=== PATIENT | female | born 1940 | race Caucasian/White ===

== ENCOUNTER 2023-11-06 11:48 | Inpatient (IN) | payer MEDICARE, OTHER ==
[~2023-11-06] VITALS: Ht 157.5 cm; Wt 85.3 kg
[2023-11-06] VITALS (24 sets, daily range): BP systolic 66–156; BP diastolic 32–108; TEMP 97.9–98; O2SAT 92–98
[2023-11-06] MEDS ORDERED: FLUMAZENIL 0.5 MG VIAL IV PRN (14:00)
[2023-11-06] MEDS ORDERED: NALOXONE PREFILLED SYRINGE 2 MG/2 ML SYRINGE IV PRN (14:00)
[2023-11-06] MEDS ORDERED: IOHEXOL 0 ML IV ONE (14:08)
[2023-11-06] MEDS ORDERED: INDOMETHACIN 100 MG SUPP.RECT ONE (14:09)
[2023-11-06] MEDS ORDERED: ANESTHESIA TRAY IN PYXIS 1 EA TRAY MC ONE (14:09)
[2023-11-06] MEDS ORDERED: IOHEXOL 50 ML IV ONE (14:20)
[2023-11-06] MEDS: MIDAZOLAM HCL 2 MG/2ML VIAL IV PRN (15:21)
[2023-11-06] MEDS: FENTANYL PF 250MCG/5ML AMPUL IV PRN (15:21)
[2023-11-06] MEDS ORDERED: NOREPINEPHRINE 32 MG in IV NS 0.9% 218 ML IV PRN (15:30)
[2023-11-06] MEDS ORDERED: LORA2TAB95 PO (16:44)
[2023-11-06] MEDS ORDERED: SENN-261 PO (16:44)
[2023-11-06] MEDS ORDERED: ACET1TAB25 PO (16:44)
[2023-11-06] MEDS ORDERED: APIX2.5T PO (16:44)
[2023-11-06] MEDS ORDERED: CLON0.1T PO (16:44)
[2023-11-06] MEDS ORDERED: ASPI-1420 PO (16:44)
[2023-11-06] MEDS ORDERED: METO25TA4 PO (16:44)
[2023-11-06] MEDS ORDERED: METF-867 PO (16:44)
[2023-11-06] MEDS ORDERED: ENAL10TA39 PO (16:44)
[2023-11-06] MEDS ORDERED: ESOM40CA PO (16:44)
[2023-11-06] MEDS ORDERED: ATOR10TA PO (16:44)
[2023-11-06] MEDS ORDERED: Z GUARD REMEDY 4 OZ OINT TP PRN (17:00)
[2023-11-06] MEDS ORDERED: ACETAMINOPHEN 650 MG/SUPP.RECT RC PRN (17:00)
[2023-11-06] MEDS ORDERED: NOREPINEPHRINE 4 MG/4 ML AMPUL IV ONE (17:01)
[2023-11-06] MEDS ORDERED: VASOPRESSIN INJ 20 UNIT/ML VIAL ONE (17:02)
[2023-11-06] MEDS ORDERED: METOPROLOL TARTRATE INJ 5 MG/5 ML AMPUL ONE (17:02)
[2023-11-06] MEDS ORDERED: FENTANYL PF 100MCG/2ML AMPUL ONE (17:02)
[2023-11-06] MEDS ORDERED: SEVOFLURANE 250 ML BOTTLE IH ONE (17:19)
[2023-11-06] MEDS: IV NS 0.9% 1,000 ML IV PRN (19:42)
[2023-11-06] MEDS: PIPERACILLIN /TAZOBACTAM 2.25 G in IV D5W 50 ML IV SCH (19:44)
[2023-11-06] MEDS: PHENYLEPHRINE 100 MG in IV NS 0.9% 240 ML IV PRN (20:55)
[2023-11-07] VITALS (95 sets, daily range): BP systolic 54–161; BP diastolic 25–142; TEMP 97.9–98.7; O2SAT 95–100
[2023-11-07] MEDS: LORAZEPAM INJ 2 MG/ML VIAL IV PRN (00:10)
[2023-11-07] MEDS ORDERED: IPRATROPIUM NEB FS 0.5 MG/2.5 ML AMPUL.NEB NEB PRN (01:30)
[2023-11-07 03:16] LABS: BASOPHILS % (AUTO) 0.1 % (0.0-2.0); EOSINOPHILS # (AUTO) 0.1 K/uL (0.0-0.7); EOSINOPHILS % (AUTO) 0.4 % (0.0-6.0); HEMATOCRIT 35 % (33-45); HEMOGLOBIN 11.5 g/dL (11.5-14.8); LYMPHOCYTES # (AUTO) 1.3 K/uL (0.8-4.8); LYMPHOCYTES % (AUTO) 7.8 % (20.0-44.0); MEAN CORPUSCULAR HEMOGLOBIN 28 PG (26.0-33.0); MEAN CORPUSCULAR HGB CONC 33 g/dl (31.0-36.0); MEAN CORPUSCULAR VOLUME 85 fL (82-100); MONOCYTES # (AUTO) 0.5 K/uL (0.1-1.30); MONOCYTES % (AUTO) 2.8 % (2.0-12.0); NEUTROPHILS # (AUTO) 14.7 K/uL (1.8-8.9); NEUTROPHILS % (AUTO) 88.9 % (43.0-81.0); PLATELET COUNT (AUTO) 91 K/uL (150-450); RED BLOOD CELL COUNT(AUTO) 4.09 MIL/uL (4.0-5.2); RED CELL DISTRIBUTION WIDTH 14.7 % (11.5-15.0); WHITE BLOOD COUNT (AUTO) 16.6 K/uL (4.3-11.0)
[2023-11-07 03:41] LABS: ALANINE AMINOTRANSFERASE 364 U/L (12-78); ALBUMIN 2.1 g/dL (3.4-5.0); ALKALINE PHOSPHATASE 150 U/L (46-116); AMYLASE 337 U/L (25-115); ASPARTATE AMINOTRANSFERASE 292 U/L (15-37); BILIRUBIN,TOTAL 3.2 mg/dL (0.2-1.0); CALCIUM, SERUM 7.4 mg/dL (8.5-10.1); CARBON DIOXIDE 18 mmol/L (21-32); CHLORIDE 113 mmol/L (98-107); CREATININE 3.4 mg/dL (0.6-1.3); GLUCOSE 53 mg/dL (74-106); LIPASE 104 U/L (16-77); MAGNESIUM 1.9 mg/dL (1.8-2.4); PHOSPHORUS 3.9 mg/dL (2.5-4.9); POTASSIUM 4.4 mmol/L (3.5-5.1); SODIUM SERUM 145 mmol/L (136-145); TOTAL PROTEIN, SERUM 5.3 g/dL (6.4-8.2); UREA NITROGEN, BLOOD 48 mg/dL (7-18)
[2023-11-07 06:38] LABS: ANISOCYTOSIS 1+; BASOPHILS % (MANUAL) 0 % (0.0-2.0); EOSINOPHILS % (MANUAL) 0 % (0-4); LYMPHOCYTES % (MANUAL) 11 % (16-48); MONOCYTES % (MANUAL) 4 % (0-11.0); NEUTROPHILS % (MANUAL) 85 (42-76); PLATELET ESTIMATE DECREASED
[2023-11-07] MEDS: MORPHINE SULFATE INJ 2 MG/ML DISP.SYRIN IV PRN (07:42)
[2023-11-07 08:46] LABS: ABG BASE EXCESS -10.7 mmol/L (-2.0-3.0); ABG OXYGEN SATURATION 95.6 % (94.0-98.0); ABG PCO2 35.8 mmHg (32.0-45.0); ABG PH 7.256 (7.350-7.450); ABG PO2 89.8 mmHg (83.0-108.0); ABG TOTAL HEMOGLOBIN 11.5 G/dL (12.0-16.0); COHb 0.3 % (0.5-1.5); MetHb 0.3 % (0.0-1.5); SITE, ABG RIGHT RADIAL
[2023-11-07] MEDS: PANTOPRAZOLE 40 MG VIAL IV SCH (09:24)
[2023-11-07] MEDS ORDERED: Sodium Bicarbonate 150 MEQ in IV D5W 1,000 ML IV PRN (10:00)
[2023-11-07] MEDS ORDERED: Sodium Bicarbonate 150 MEQ in IV D5W 1,000 ML IV SCH (10:00)
[2023-11-07 10:21] LABS: ABG BASE EXCESS -9.1 mmol/L (-2.0-3.0); ABG OXYGEN SATURATION 98.3 % (94.0-98.0); ABG PCO2 33.1 mmHg (32.0-45.0); ABG PH 7.308 (7.350-7.450); ABG PO2 136.3 mmHg (83.0-108.0); ABG TOTAL HEMOGLOBIN 11.8 G/dL (12.0-16.0); COHb 0.3 % (0.5-1.5); MetHb 0.3 % (0.0-1.5); O2Hb 97.7 % (94.0-97.0); SITE, ABG RIGHT RADIAL
[2023-11-07] MEDS: Sodium Bicarbonate 100 MEQ in IV D5 / 0.2% NACL 1,000 ML IV SCH (10:31)
[2023-11-07 14:06] LABS: HIV-1 p24 ANTIGEN NON REACTIVE (NONREACTIVE); HIV-1/2 ANTIBODY NON REACTIVE (NONREACTIVE)
[2023-11-07] MEDS ORDERED: PROPOFOL 200 MG/20 ML VIAL IV ONE (15:30)
[2023-11-07] MEDS ORDERED: MIDAZOLAM HCL 5 MG/5ML VIAL IV ONE (15:30)
[2023-11-07] MEDS: KETAMINE HCL (500MG/10ML) 50 MG/ML VIAL IJ ONE (15:30)
[2023-11-07] MEDS ORDERED: IV NS 0.9% 250 ML IV ONE (15:33)
[2023-11-07] MEDS: IV NS 0.9% 1,000 ML IV PRN (17:32)
[2023-11-07] MEDS: VANCOMYCIN 750 MG in IV D5W 250 ML IV SCH (19:59)
[2023-11-07 20:24] LABS: APPEARANCE,URINE TURBID (CLEAR); BILIRUBIN,URINE 1+ (NEGATIVE); BLOOD, URINE 3+ Ery/uL (NEGATIVE); COLOR,URINE DARK YELLOW (YELLOW); KETONES,URINE NEGATIVE (NEGATIVE); LEUKOCYTE ESTERASE ,URINE 1+ (NEGATIVE); NITRITE, URINE NEGATIVE (NEGATIVE); PH,URINE 5.5 (5.0-8.0); PROTEIN,URINE 2+ mg/dl (NEGATIVE); UGLUCOSE NEGATIVE (NEGATIVE); UROBILINOGEN,URINE 0.2 EU/dL (0.2)
[2023-11-07 20:44] LABS: CREATININE, URINE 133.8 MG/DL (30.0-125.0); URINE TOTAL PROTEIN 343.1 mg/dL (0-11.9)
[2023-11-07 21:02] LABS: ADD URINE CULTURE YES; BACTERIA,URINE 2+ /HPF (None Seen); RBC,URINE 21-50 /HPF (0-2)
[2023-11-07 21:03] LABS: CALCIUM OXALATE CRYSTALS,UR Rare /HPF (None Seen)
[2023-11-07 22:28] LABS: EOSINOPHIL,URINE None Seen
[2023-11-08] VITALS (105 sets, daily range): BP systolic 89–142; BP diastolic 59–127; TEMP 97.6–98.2; O2SAT 95–100
[2023-11-08] MEDS: MORPHINE SULFATE INJ 2 MG/ML DISP.SYRIN IV PRN (03:56)
[2023-11-08 04:43] LABS: BASOPHILS % (AUTO) 0.1 % (0.0-2.0); EOSINOPHILS # (AUTO) 0.3 K/uL (0.0-0.7); EOSINOPHILS % (AUTO) 1.8 % (0.0-6.0); HEMATOCRIT 31 % (33-45); HEMOGLOBIN 9.9 g/dL (11.5-14.8); LYMPHOCYTES % (AUTO) 6.5 % (20.0-44.0); MEAN CORPUSCULAR HEMOGLOBIN 28 PG (26.0-33.0); MEAN CORPUSCULAR HGB CONC 32 g/dl (31.0-36.0); MEAN CORPUSCULAR VOLUME 86 fL (82-100); MONOCYTES # (AUTO) 0.4 K/uL (0.1-1.30); MONOCYTES % (AUTO) 2.7 % (2.0-12.0); NEUTROPHILS # (AUTO) 13.4 K/uL (1.8-8.9); NEUTROPHILS % (AUTO) 88.9 % (43.0-81.0); PLATELET COUNT (AUTO) 69 K/uL (150-450); RED BLOOD CELL COUNT(AUTO) 3.57 MIL/uL (4.0-5.2); RED CELL DISTRIBUTION WIDTH 15.4 % (11.5-15.0); WHITE BLOOD COUNT (AUTO) 15.1 K/uL (4.3-11.0)
[2023-11-08 05:05] LABS: CREATINE KINASE, TOTAL 524 U/L (26-192)
[2023-11-08 05:56] LABS: ALANINE AMINOTRANSFERASE 232 U/L (12-78); ALBUMIN 1.9 g/dL (3.4-5.0); ALKALINE PHOSPHATASE 221 U/L (46-116); ASPARTATE AMINOTRANSFERASE 140 U/L (15-37); BILIRUBIN,TOTAL 3.5 mg/dL (0.2-1.0); CALCIUM, SERUM 7.1 mg/dL (8.5-10.1); CARBON DIOXIDE 20 mmol/L (21-32); CHLORIDE 110 mmol/L (98-107); CREATININE 4.3 mg/dL (0.6-1.3); GLUCOSE 140 mg/dL (74-106); MAGNESIUM 1.8 mg/dL (1.8-2.4); PHOSPHORUS 2.9 mg/dL (2.5-4.9); POTASSIUM 4.4 mmol/L (3.5-5.1); SODIUM SERUM 142 mmol/L (136-145); TOTAL PROTEIN, SERUM 5.1 g/dL (6.4-8.2); UREA NITROGEN, BLOOD 57 mg/dL (7-18)
[2023-11-08] MEDS ORDERED: Sodium Bicarbonate 150 MEQ in IV D5W 1,000 ML IV PRN (08:00)
[2023-11-08] MEDS: FUROSEMIDE 100 MG/10 ML VIAL IV ONE (08:14)
[2023-11-08] MEDS: Sodium Bicarbonate 150 MEQ in IV D5W 1,000 ML IV SCH (08:14)
[2023-11-08 09:48] LABS: ABG BASE EXCESS -9.3 mmol/L (-2.0-3.0); ABG PCO2 34.7 mmHg (32.0-45.0); ABG PH 7.291 (7.350-7.450); ABG PO2 135.2 mmHg (83.0-108.0); ABG TOTAL HEMOGLOBIN 11.2 G/dL (12.0-16.0); COHb 0.3 % (0.5-1.5); MetHb 0.1 % (0.0-1.5); O2Hb 97.6 % (94.0-97.0); SITE, ABG RIGHT RADIAL
[2023-11-08 11:50] LABS: ANISOCYTOSIS 1+; BASOPHILS % (MANUAL) 0 % (0.0-2.0); EOSINOPHILS % (MANUAL) 1 % (0-4); LYMPHOCYTES % (MANUAL) 8 % (16-48); MONOCYTES % (MANUAL) 4 % (0-11.0); NEUTROPHILS % (MANUAL) 87 (42-76); PLATELET ESTIMATE DECREASED
[2023-11-08] MEDS: AMIODARONE 150 MG in IV D5W 100 ML IV ONE (16:07)
[2023-11-08] MEDS: AMIODARONE 450 MG in IV D5W 241 ML IV PRN (16:20)
[2023-11-09] VITALS (62 sets, daily range): BP systolic 93–201; BP diastolic 56–184; TEMP 98.1–99; O2SAT 93–100
[2023-11-09 04:51] LABS: BASOPHILS % (AUTO) 0.3 % (0.0-2.0); EOSINOPHILS # (AUTO) 0.1 K/uL (0.0-0.7); EOSINOPHILS % (AUTO) 0.7 % (0.0-6.0); HEMATOCRIT 29 % (33-45); HEMOGLOBIN 9.5 g/dL (11.5-14.8); LYMPHOCYTES # (AUTO) 0.8 K/uL (0.8-4.8); LYMPHOCYTES % (AUTO) 6.9 % (20.0-44.0); MEAN CORPUSCULAR HEMOGLOBIN 28 PG (26.0-33.0); MEAN CORPUSCULAR HGB CONC 33 g/dl (31.0-36.0); MEAN CORPUSCULAR VOLUME 83 fL (82-100); MONOCYTES # (AUTO) 0.4 K/uL (0.1-1.30); MONOCYTES % (AUTO) 3.6 % (2.0-12.0); NEUTROPHILS # (AUTO) 10.7 K/uL (1.8-8.9); NEUTROPHILS % (AUTO) 88.5 % (43.0-81.0); PLATELET COUNT (AUTO) 61 K/uL (150-450); RED BLOOD CELL COUNT(AUTO) 3.44 MIL/uL (4.0-5.2); RED CELL DISTRIBUTION WIDTH 14.9 % (11.5-15.0); WHITE BLOOD COUNT (AUTO) 12.1 K/uL (4.3-11.0)
[2023-11-09 05:14] LABS: ALANINE AMINOTRANSFERASE 160 U/L (12-78); ALBUMIN 1.7 g/dL (3.4-5.0); ALKALINE PHOSPHATASE 231 U/L (46-116); ASPARTATE AMINOTRANSFERASE 73 U/L (15-37); BILIRUBIN,TOTAL 3.4 mg/dL (0.2-1.0); CALCIUM, SERUM 7.5 mg/dL (8.5-10.1); CARBON DIOXIDE 32 mmol/L (21-32); CHLORIDE 103 mmol/L (98-107); GLUCOSE 148 mg/dL (74-106); MAGNESIUM 1.8 mg/dL (1.8-2.4); PHOSPHORUS 1.9 mg/dL (2.5-4.9); POTASSIUM 3.3 mmol/L (3.5-5.1); SODIUM SERUM 141 mmol/L (136-145); TOTAL PROTEIN, SERUM 4.9 g/dL (6.4-8.2); UREA NITROGEN, BLOOD 31 mg/dL (7-18)
[2023-11-09 05:53] LABS: BASOPHILS % (MANUAL) 0 % (0.0-2.0); EOSINOPHILS % (MANUAL) 1 % (0-4); LYMPHOCYTES % (MANUAL) 9 % (16-48); MONOCYTES % (MANUAL) 5 % (0-11.0); NEUTROPHILS % (MANUAL) 85 (42-76); PLATELET ESTIMATE DECREASED
[2023-11-09 06:07] LABS: HEPATITIS B CORE AB, TOTAL Positive (Negative)
[2023-11-09 06:07] LABS: PTH, INTACT 222 pg/mL (15-65)
[2023-11-09] MEDS: IV NS 0.9% 1,000 ML IV PRN (08:29)
[2023-11-09 10:09] LABS: *SPE A/G RATIO 0.8 (0.7-1.7); *SPE ALBUMIN 1.8 g/dL (2.9-4.4); *SPE ALPHA-1-GLOBULIN 0.3 g/dL (0.0-0.4); *SPE ALPHA-2-GLOBULIN 0.6 g/dL (0.4-1.0); *SPE BETA GLOBULIN 0.7 g/dL (0.7-1.3); *SPE GLOBULIN, TOTAL 2.2 g/dL (2.2-3.9); *SPE M-SPIKE Not Observed g/dL (Not Observed); *SPEGAMMA GLOBULIN 0.6 g/dL (0.4-1.8)
[2023-11-09 10:09] LABS: ABG OXYGEN SATURATION 96.2 % (94.0-98.0); ABG PCO2 43.1 mmHg (32.0-45.0); ABG PH 7.466 (7.350-7.450); ABG PO2 85.9 mmHg (83.0-108.0); ABG TOTAL HEMOGLOBIN 10.9 G/dL (12.0-16.0); COHb 0.1 % (0.5-1.5); MetHb 0.3 % (0.0-1.5); O2Hb 95.8 % (94.0-97.0); SITE, ABG RIGHT RADIAL
[2023-11-09] MEDS ORDERED: ALBUMIN 25% 25 GM in PREMIX 1 EA IV PRN (15:00)
[2023-11-09] MEDS ORDERED: Sodium Phosphate 15 MMOL in IV NS 0.9% 245 ML IV SCH (16:30)
[2023-11-09] MEDS: NEUTRA PHOS 1 POWD.PACKET PO ONE (17:19)
[2023-11-09] MEDS: ONDANSETRON HCL/PF 4 MG/2 ML VIAL IVP PRN (17:19)
[2023-11-09] MEDS: APIXABAN 2.5 MG TABLET PO SCH (17:31)
[2023-11-09 17:48] LABS: ABG BASE EXCESS 3.2 mmol/L (-2.0-3.0); ABG OXYGEN SATURATION 97.3 % (94.0-98.0); ABG PH 7.478 (7.350-7.450); ABG PO2 100.6 mmHg (83.0-108.0); ABG TOTAL HEMOGLOBIN 10.7 G/dL (12.0-16.0); COHb 0.3 % (0.5-1.5); MetHb 0.3 % (0.0-1.5); O2Hb 96.7 % (94.0-97.0); PEEP,BG 5 cm H2O; SITE, ABG RIGHT RADIAL
[2023-11-09] MEDS: METOPROLOL SUCCINATE 25 MG TAB.SR.24H PO ONE (19:32)
[2023-11-09] MEDS: LISINOPRIL (20MG) 20 MG TABLET PO ONE (19:32)
[2023-11-09] MEDS: CLONIDINE HCL 0.1 MG TABLET PO ONE (19:33)
[2023-11-10] VITALS (21 sets, daily range): BP systolic 90–139; BP diastolic 53–70; TEMP 98–98.6; O2SAT 96–100
[2023-11-10 04:54] LABS: BASOPHILS % (AUTO) 0.1 % (0.0-2.0); EOSINOPHILS # (AUTO) 0.1 K/uL (0.0-0.7); HEMATOCRIT 28 % (33-45); HEMOGLOBIN 9.6 g/dL (11.5-14.8); LYMPHOCYTES # (AUTO) 0.8 K/uL (0.8-4.8); LYMPHOCYTES % (AUTO) 7.6 % (20.0-44.0); MEAN CORPUSCULAR HEMOGLOBIN 28 PG (26.0-33.0); MEAN CORPUSCULAR HGB CONC 34 g/dl (31.0-36.0); MEAN CORPUSCULAR VOLUME 84 fL (82-100); MONOCYTES # (AUTO) 0.8 K/uL (0.1-1.30); NEUTROPHILS # (AUTO) 8.9 K/uL (1.8-8.9); NEUTROPHILS % (AUTO) 83.3 % (43.0-81.0); PLATELET COUNT (AUTO) 56 K/uL (150-450); RED CELL DISTRIBUTION WIDTH 14.9 % (11.5-15.0); WHITE BLOOD COUNT (AUTO) 10.6 K/uL (4.3-11.0)
[2023-11-10 05:17] LABS: ANISOCYTOSIS 1+; BASOPHILS % (MANUAL) 0 % (0.0-2.0); EOSINOPHILS % (MANUAL) 1 % (0-4); LYMPHOCYTES % (MANUAL) 9 % (16-48); MONOCYTES % (MANUAL) 5 % (0-11.0); NEUTROPHILS % (MANUAL) 85 (42-76); PLATELET ESTIMATE DECREASED
[2023-11-10 05:19] LABS: ALANINE AMINOTRANSFERASE 103 U/L (12-78); ALBUMIN 1.5 g/dL (3.4-5.0); ALKALINE PHOSPHATASE 209 U/L (46-116); ASPARTATE AMINOTRANSFERASE 34 U/L (15-37); BILIRUBIN,TOTAL 1.9 mg/dL (0.2-1.0); CALCIUM, SERUM 8.3 mg/dL (8.5-10.1); CARBON DIOXIDE 33 mmol/L (21-32); CHLORIDE 103 mmol/L (98-107); CREATININE 2.8 mg/dL (0.6-1.3); GLUCOSE 131 mg/dL (74-106); MAGNESIUM 2.3 mg/dL (1.8-2.4); PHOSPHORUS 3.2 mg/dL (2.5-4.9); POTASSIUM 3.7 mmol/L (3.5-5.1); SODIUM SERUM 142 mmol/L (136-145); TOTAL PROTEIN, SERUM 4.9 g/dL (6.4-8.2); UREA NITROGEN, BLOOD 26 mg/dL (7-18)
[2023-11-10] MEDS: LISINOPRIL (20MG) 20 MG TABLET PO SCH (09:01)
[2023-11-10] MEDS: METOPROLOL SUCCINATE 25 MG TAB.SR.24H PO SCH (09:01)
[2023-11-10] MEDS: PANTOPRAZOLE 40 MG TABLET.DR PO SCH (09:02)
[2023-11-10] MEDS: CLONIDINE HCL 0.1 MG TABLET PO SCH (09:02)
[2023-11-10] MEDS: PROSOURCE / PROSTAT (PYXIS) 30 ML UDC GT SCH (17:27)
[2023-11-10] MEDS ORDERED: VANCOMYCIN 750 MG in IV D5W 250 ML IV SCH (19:00)
[2023-11-10] MEDS ORDERED: PIPERCILLIN/TAZOBACTAM 2.25GM/D5W 50MLPB IV ONE (19:27)
[2023-11-11] VITALS: BP 139/68; TEMP 98.6; O2SAT 98
[2023-11-11] MEDS ORDERED: PIPERCILLIN/TAZOBACTAM 2.25GM/D5W 50MLPB IV ONE (02:55)
[2023-11-11 04:00] VITALS: BP 147/71; TEMP 98.2; O2SAT 97
[2023-11-11 07:00] VITALS: BP 138/74; TEMP 97.5; O2SAT 99
[2023-11-11 07:06] LABS: ALANINE AMINOTRANSFERASE 72 U/L (12-78); ALKALINE PHOSPHATASE 218 U/L (46-116); BILIRUBIN,TOTAL 1.5 mg/dL (0.2-1.0); CALCIUM, SERUM 8.4 mg/dL (8.5-10.1); CARBON DIOXIDE 24 mmol/L (21-32); CHLORIDE 102 mmol/L (98-107); CREATININE 3.6 mg/dL (0.6-1.3); GLUCOSE 126 mg/dL (74-106); MAGNESIUM 2.3 mg/dL (1.8-2.4); POTASSIUM 5.2 mmol/L (3.5-5.1); SODIUM SERUM 137 mmol/L (136-145); TOTAL PROTEIN, SERUM 5.5 g/dL (6.4-8.2); UREA NITROGEN, BLOOD 44 mg/dL (7-18)
[2023-11-11 07:17] LABS: ALBUMIN 1.4 g/dL (3.4-5.0)
[2023-11-11 08:51] LABS: ASPARTATE AMINOTRANSFERASE 16 U/L (15-37)
[2023-11-11] MEDS: GLUCERNA SHAKE 237 ML CAN PO SCH (09:02)
[2023-11-11] MEDS ORDERED: MVI-12 10ML IV ONE (13:00)
[2023-11-11 16:00] VITALS: BP 138/78; TEMP 97.6; O2SAT 98
[2023-11-11 18:06] LABS: BASOPHILS % (AUTO) 0.1 % (0.0-2.0); EOSINOPHILS # (AUTO) 0.1 K/uL (0.0-0.7); EOSINOPHILS % (AUTO) 0.7 % (0.0-6.0); HEMATOCRIT 37 % (33-45); LYMPHOCYTES # (AUTO) 1.4 K/uL (0.8-4.8); LYMPHOCYTES % (AUTO) 8.7 % (20.0-44.0); MEAN CORPUSCULAR HEMOGLOBIN 27 PG (26.0-33.0); MEAN CORPUSCULAR HGB CONC 32 g/dl (31.0-36.0); MEAN CORPUSCULAR VOLUME 84 fL (82-100); MONOCYTES # (AUTO) 1.6 K/uL (0.1-1.30); MONOCYTES % (AUTO) 9.8 % (2.0-12.0); NEUTROPHILS # (AUTO) 13.1 K/uL (1.8-8.9); NEUTROPHILS % (AUTO) 80.7 % (43.0-81.0); PLATELET COUNT (AUTO) 99 K/uL (150-450); RED BLOOD CELL COUNT(AUTO) 4.44 MIL/uL (4.0-5.2); RED CELL DISTRIBUTION WIDTH 15.2 % (11.5-15.0); WHITE BLOOD COUNT (AUTO) 16.2 K/uL (4.3-11.0)
[2023-11-11] MEDS: LORAZEPAM 1 MG TABLET PO PRN (19:59)
[2023-11-11 20:00] VITALS: BP 138/64; TEMP 98.2; O2SAT 96
[2023-11-11 20:07] LABS: ANISOCYTOSIS 1+; LYMPHOCYTES % (MANUAL) 6 % (16-48); MONOCYTES % (MANUAL) 2 % (0-11.0); NEUTROPHILS % (MANUAL) 92 (42-76); PLATELET ESTIMATE DECREASED
[2023-11-12] MEDS ORDERED: DEXTROSE 50%-WATER 50 ML DISP.SYRIN IV PRN (04:00)
[2023-11-12] MEDS: BLOOD SUGAR DIAGNOSTIC 1 EACH STRIP IN SCH (06:48)
[2023-11-12] MEDS: INSULIN REGULAR, HUMAN 100 UNIT/ML 3 ML VIAL SQ PRN (06:49)
[2023-11-12 07:47] LABS: BASOPHILS % (AUTO) 0.2 % (0.0-2.0); EOSINOPHILS # (AUTO) 0.1 K/uL (0.0-0.7); HEMATOCRIT 31 % (33-45); HEMOGLOBIN 10.1 g/dL (11.5-14.8); LYMPHOCYTES # (AUTO) 1.3 K/uL (0.8-4.8); LYMPHOCYTES % (AUTO) 8.6 % (20.0-44.0); MEAN CORPUSCULAR HEMOGLOBIN 27 PG (26.0-33.0); MEAN CORPUSCULAR HGB CONC 33 g/dl (31.0-36.0); MEAN CORPUSCULAR VOLUME 84 fL (82-100); MONOCYTES # (AUTO) 1.2 K/uL (0.1-1.30); MONOCYTES % (AUTO) 8.5 % (2.0-12.0); NEUTROPHILS % (AUTO) 81.7 % (43.0-81.0); PLATELET COUNT (AUTO) 89 K/uL (150-450); RED BLOOD CELL COUNT(AUTO) 3.67 MIL/uL (4.0-5.2); RED CELL DISTRIBUTION WIDTH 15.3 % (11.5-15.0); WHITE BLOOD COUNT (AUTO) 14.7 K/uL (4.3-11.0)
[2023-11-12 08:34] VITALS: BP 145/67; TEMP 98.2; O2SAT 97
[2023-11-12 08:46] LABS: ALANINE AMINOTRANSFERASE 52 U/L (12-78); ALBUMIN 1.6 g/dL (3.4-5.0); ALKALINE PHOSPHATASE 201 U/L (46-116); ASPARTATE AMINOTRANSFERASE 22 U/L (15-37); BILIRUBIN,TOTAL 1.3 mg/dL (0.2-1.0); CALCIUM, SERUM 8.4 mg/dL (8.5-10.1); CARBON DIOXIDE 26 mmol/L (21-32); CHLORIDE 101 mmol/L (98-107); CREATININE 3.3 mg/dL (0.6-1.3); GLUCOSE 109 mg/dL (74-106); MAGNESIUM 1.9 mg/dL (1.8-2.4); PHOSPHORUS 4.3 mg/dL (2.5-4.9); POTASSIUM 3.7 mmol/L (3.5-5.1); SODIUM SERUM 138 mmol/L (136-145); TOTAL PROTEIN, SERUM 5.6 g/dL (6.4-8.2); UREA NITROGEN, BLOOD 37 mg/dL (7-18)
[2023-11-12] MEDS: MULTIVITAMINS,THERAGRAN 1 UDTAB TABLET PO SCH (09:29)
[2023-11-12 16:10] VITALS: BP 144/70; TEMP 98.8; O2SAT 97
[2023-11-12 16:39] LABS: ANISOCYTOSIS 1+; BAND % (MANUAL) 2 % (0.0-5.0); LYMPHOCYTES % (MANUAL) 16 % (16-48); MONOCYTES % (MANUAL) 6 % (0-11.0); NEUTROPHILS % (MANUAL) 76 (42-76); PLATELET ESTIMATE DECREASED
[2023-11-12 20:00] VITALS: BP_SYST 128; BP_SYST 137; BP_DIAS 64; BP_DIAS 79; TEMP 98.4; O2SAT 98; O2SAT 99
[2023-11-13 02:07] LABS: HEPATITIS B CORE AB, IgM Negative (Negative); HEPATITIS B SURFACE AB Reactive (.)
[2023-11-13 06:53] LABS: CALCIUM, SERUM 8.5 mg/dL (8.5-10.1); CARBON DIOXIDE 25 mmol/L (21-32); CHLORIDE 99 mmol/L (98-107); GLUCOSE 154 mg/dL (74-106); POTASSIUM 3.6 mmol/L (3.5-5.1); SODIUM SERUM 136 mmol/L (136-145); UREA NITROGEN, BLOOD 54 mg/dL (7-18)
[2023-11-13 07:00] VITALS: BP 135/65; TEMP 98.2; O2SAT 99
[2023-11-13 07:53] LABS: BASOPHILS % (AUTO) 0.1 % (0.0-2.0); EOSINOPHILS # (AUTO) 0.1 K/uL (0.0-0.7); EOSINOPHILS % (AUTO) 0.9 % (0.0-6.0); HEMATOCRIT 29 % (33-45); HEMOGLOBIN 9.3 g/dL (11.5-14.8); LYMPHOCYTES # (AUTO) 1.1 K/uL (0.8-4.8); LYMPHOCYTES % (AUTO) 7.9 % (20.0-44.0); MEAN CORPUSCULAR HEMOGLOBIN 27 PG (26.0-33.0); MEAN CORPUSCULAR HGB CONC 32 g/dl (31.0-36.0); MEAN CORPUSCULAR VOLUME 84 fL (82-100); MONOCYTES % (AUTO) 7.7 % (2.0-12.0); NEUTROPHILS # (AUTO) 11.3 K/uL (1.8-8.9); NEUTROPHILS % (AUTO) 83.4 % (43.0-81.0); PLATELET COUNT (AUTO) 106 K/uL (150-450); RED BLOOD CELL COUNT(AUTO) 3.42 MIL/uL (4.0-5.2); WHITE BLOOD COUNT (AUTO) 13.6 K/uL (4.3-11.0)
[2023-11-13 10:42] LABS: ALBUMIN 1.5 g/dL (3.4-5.0); BILIRUBIN,DIRECT 0.7 mg/dL (0.0-0.2); BILIRUBIN,TOTAL 1.1 mg/dL (0.2-1.0); TOTAL PROTEIN, SERUM 5.4 g/dL (6.4-8.2)
[2023-11-13 14:59] LABS: BASOPHILS % (AUTO) 0.6 % (0.0-2.0); EOSINOPHILS # (AUTO) 0.1 K/uL (0.0-0.7); EOSINOPHILS % (AUTO) 1.4 % (0.0-6.0); HEMATOCRIT 28 % (33-45); HEMOGLOBIN 9.2 g/dL (11.5-14.8); LYMPHOCYTES # (AUTO) 0.9 K/uL (0.8-4.8); LYMPHOCYTES % (AUTO) 16.7 % (20.0-44.0); MEAN CORPUSCULAR HEMOGLOBIN 28 PG (26.0-33.0); MEAN CORPUSCULAR HGB CONC 33 g/dl (31.0-36.0); MEAN CORPUSCULAR VOLUME 84 fL (82-100); MONOCYTES # (AUTO) 0.3 K/uL (0.1-1.30); NEUTROPHILS # (AUTO) 4.1 K/uL (1.8-8.9); NEUTROPHILS % (AUTO) 76.3 % (43.0-81.0); PLATELET COUNT (AUTO) 104 K/uL (150-450); RED CELL DISTRIBUTION WIDTH 14.8 % (11.5-15.0); WHITE BLOOD COUNT (AUTO) 5.4 K/uL (4.3-11.0)
[2023-11-13 15:36] LABS: EOSINOPHILS % (MANUAL) 2 % (0-4); LYMPHOCYTES % (MANUAL) 16 % (16-48); MONOCYTES % (MANUAL) 4 % (0-11.0); NEUTROPHILS % (MANUAL) 78 (42-76)
[2023-11-13 15:37] LABS: ANISOCYTOSIS 1+; OVALOCYTES 1+; PLATELET ESTIMATE DECREASED
[2023-11-13 20:00] VITALS: BP 134/63; TEMP 99.1; O2SAT 97
[2023-11-13] MEDS: ATORVASTATIN 10 MG TABLET PO SCH (21:15)
[2023-11-14 07:00] VITALS: BP 130/57; TEMP 99; O2SAT 99
[2023-11-14 07:16] LABS: BASOPHILS % (AUTO) 0.1 % (0.0-2.0); EOSINOPHILS # (AUTO) 0.1 K/uL (0.0-0.7); EOSINOPHILS % (AUTO) 1.2 % (0.0-6.0); HEMATOCRIT 26 % (33-45); HEMOGLOBIN 8.7 g/dL (11.5-14.8); LYMPHOCYTES # (AUTO) 0.8 K/uL (0.8-4.8); LYMPHOCYTES % (AUTO) 7.3 % (20.0-44.0); MEAN CORPUSCULAR HEMOGLOBIN 28 PG (26.0-33.0); MEAN CORPUSCULAR HGB CONC 33 g/dl (31.0-36.0); MEAN CORPUSCULAR VOLUME 84 fL (82-100); MONOCYTES % (AUTO) 8.2 % (2.0-12.0); NEUTROPHILS # (AUTO) 9.6 K/uL (1.8-8.9); NEUTROPHILS % (AUTO) 83.2 % (43.0-81.0); PLATELET COUNT (AUTO) 129 K/uL (150-450); RED BLOOD CELL COUNT(AUTO) 3.15 MIL/uL (4.0-5.2); RED CELL DISTRIBUTION WIDTH 14.9 % (11.5-15.0); WHITE BLOOD COUNT (AUTO) 11.6 K/uL (4.3-11.0)
[2023-11-14 07:58] LABS: ALANINE AMINOTRANSFERASE 39 U/L (12-78); ALKALINE PHOSPHATASE 157 U/L (46-116); ASPARTATE AMINOTRANSFERASE 38 U/L (15-37); CALCIUM, SERUM 7.9 mg/dL (8.5-10.1); CARBON DIOXIDE 33 mmol/L (21-32); CHLORIDE 99 mmol/L (98-107); CREATININE 3.3 mg/dL (0.6-1.3); GLUCOSE 126 mg/dL (74-106); POTASSIUM 3.3 mmol/L (3.5-5.1); SODIUM SERUM 137 mmol/L (136-145); TOTAL PROTEIN, SERUM 5.2 g/dL (6.4-8.2); UREA NITROGEN, BLOOD 37 mg/dL (7-18)
[2023-11-14 08:08] LABS: ALBUMIN 1.3 g/dL (3.4-5.0)
[2023-11-14] MEDS: LISINOPRIL (20MG) 20 MG TABLET PO SCH (09:00)
[2023-11-14] MEDS: METOPROLOL SUCCINATE 25 MG TAB.SR.24H PO SCH (09:00)
[2023-11-14] MEDS: SENNOSIDES 8.6 MG TABLET PO SCH (09:00)
[2023-11-14] MEDS: ASPIRIN EC 81 MG TABLET.DR PO SCH (09:00)
[2023-11-14] MEDS ORDERED: ANESTHESIA TRAY IN PYXIS 1 EA TRAY MC ONE (10:11)
[2023-11-14] MEDS ORDERED: IOHEXOL 0 ML IV ONE (10:11)
[2023-11-14] MEDS ORDERED: HEPARIN SODIUM, PORCINE 1,000 UNIT/ML VIAL ONE (10:12)
[2023-11-14] MEDS ORDERED: BUPIVACAINE 0.25% 75 MG/30 ML VIAL ONE (10:12)
[2023-11-14] MEDS ORDERED: LIDOCAINE 1% INJ 50 ML MDV IJ ONE (10:12)
[2023-11-14] MEDS: POTASSIUM CHLORIDE 10 MEQ/50 ML PREMIXED IVPB FOR PERIPHERAL LINE IV ONE (10:43)
[2023-11-14 16:00] VITALS: BP_SYST 117; BP_SYST 139; BP_DIAS 53; BP_DIAS 68; TEMP 97.4; TEMP 98.4; O2SAT 95; O2SAT 99
[2023-11-14 20:00] VITALS: BP 160/90; TEMP 98.8; O2SAT 99
[2023-11-15 06:31] LABS: BASOPHILS % (AUTO) 0.1 % (0.0-2.0); EOSINOPHILS # (AUTO) 0.1 K/uL (0.0-0.7); EOSINOPHILS % (AUTO) 1.2 % (0.0-6.0); HEMATOCRIT 28 % (33-45); HEMOGLOBIN 9.2 g/dL (11.5-14.8); LYMPHOCYTES # (AUTO) 0.8 K/uL (0.8-4.8); MEAN CORPUSCULAR HEMOGLOBIN 28 PG (26.0-33.0); MEAN CORPUSCULAR HGB CONC 33 g/dl (31.0-36.0); MEAN CORPUSCULAR VOLUME 84 fL (82-100); MONOCYTES # (AUTO) 0.9 K/uL (0.1-1.30); NEUTROPHILS # (AUTO) 9.5 K/uL (1.8-8.9); NEUTROPHILS % (AUTO) 83.7 % (43.0-81.0); PLATELET COUNT (AUTO) 176 K/uL (150-450); RED CELL DISTRIBUTION WIDTH 14.6 % (11.5-15.0); WHITE BLOOD COUNT (AUTO) 11.4 K/uL (4.3-11.0)
[2023-11-15 06:40] LABS: CALCIUM, SERUM 8.4 mg/dL (8.5-10.1); CARBON DIOXIDE 34 mmol/L (21-32); CHLORIDE 99 mmol/L (98-107); CREATININE 3.9 mg/dL (0.6-1.3); GLUCOSE 125 mg/dL (74-106); POTASSIUM 3.5 mmol/L (3.5-5.1); SODIUM SERUM 138 mmol/L (136-145); UREA NITROGEN, BLOOD 45 mg/dL (7-18)
[2023-11-15 08:00] VITALS: BP 160/71; TEMP 97.7; O2SAT 99
[2023-11-15 20:00] VITALS: BP 133/75; TEMP 98.6; O2SAT 99
[2023-11-15 20:24] VITALS: BP 133/75; TEMP 98.6; O2SAT 99
[2023-11-16 07:11] LABS: BASOPHILS # (AUTO) 0.1 K/uL (0.0-0.2); BASOPHILS % (AUTO) 0.4 % (0.0-2.0); EOSINOPHILS # (AUTO) 0.1 K/uL (0.0-0.7); EOSINOPHILS % (AUTO) 0.9 % (0.0-6.0); HEMATOCRIT 28 % (33-45); HEMOGLOBIN 9.1 g/dL (11.5-14.8); LYMPHOCYTES % (AUTO) 7.3 % (20.0-44.0); MEAN CORPUSCULAR HEMOGLOBIN 28 PG (26.0-33.0); MEAN CORPUSCULAR HGB CONC 32 g/dl (31.0-36.0); MEAN CORPUSCULAR VOLUME 85 fL (82-100); MONOCYTES # (AUTO) 1.1 K/uL (0.1-1.30); MONOCYTES % (AUTO) 7.9 % (2.0-12.0); NEUTROPHILS % (AUTO) 83.5 % (43.0-81.0); PLATELET COUNT (AUTO) 237 K/uL (150-450); RED BLOOD CELL COUNT(AUTO) 3.32 MIL/uL (4.0-5.2); RED CELL DISTRIBUTION WIDTH 15.1 % (11.5-15.0); WHITE BLOOD COUNT (AUTO) 14.4 K/uL (4.3-11.0)
[2023-11-16 08:00] VITALS: BP 148/79; TEMP 97.5; O2SAT 99
[2023-11-16] MEDS: ALBUTEROL FS 2.5 MG/3 ML VIAL.NEB NEB SCH (11:30)
[2023-11-16] MEDS: IPRATROPIUM NEB FS 0.5 MG/2.5 ML AMPUL.NEB NEB SCH (11:30)
[2023-11-16] MEDS ORDERED: Blood Sugar Diagnostic IN (12:51)
[2023-11-16] MEDS ORDERED: CLON0.1T PO (12:51)
[2023-11-16] MEDS ORDERED: Prosource GT (12:51)
[2023-11-16] MEDS ORDERED: MULT-24 PO (12:51)
[2023-11-16] MEDS ORDERED: NUT.237L45 PO (12:51)
[2023-11-16] MEDS ORDERED: IPRA0.2S9 NEB (12:51)
[2023-11-16] MEDS ORDERED: AMOX-427 PO (12:51)
[2023-11-16] MEDS ORDERED: APIX2.5T PO (12:51)
[2023-11-16] MEDS ORDERED: ALBUT2 NEB (12:51)
[2023-11-16] MEDS ORDERED: INSU100V28 SQ (12:51)
[2023-11-16] MEDS ORDERED: PANT40TA49 PO (12:51)
[2023-11-16 13:50] VITALS: O2SAT 95
[2023-11-16 14:05] VITALS: O2SAT 95
[2023-11-16 16:00] VITALS: BP 148/74; TEMP 98.1; O2SAT 97
== END 2023-11-16 19:25 | DRG 871 ==
LOC: ICU 14:13 → MED 11-10 18:38
PROVIDERS: ATTEND Nurse Practitioner Acute Care
PROC: 0F798DZ Dilation of Common Bile Duct with Intraluminal Device, Via Natural or Artificial Opening Endoscopic (ICD-10-PCS; 2023-11-06)
PROC: 0FC98ZZ Extirpation of Matter from Common Bile Duct, Via Natural or Artificial Opening Endoscopic (ICD-10-PCS; 2023-11-06)
PROC: 02HV33Z Insertion of Infusion Device into Superior Vena Cava, Percutaneous Approach (ICD-10-PCS; principal; 2023-11-07)
PROC: B548ZZA Ultrasonography of Superior Vena Cava, Guidance (ICD-10-PCS; 2023-11-07)
PROC: 5A09357 Assistance with Respiratory Ventilation, Less than 24 Consecutive Hours, Continuous Positive Airway Pressure (ICD-10-PCS; 2023-11-07)
PROC: 0F9430Z Drainage of Gallbladder with Drainage Device, Percutaneous Approach (ICD-10-PCS; 2023-11-07)
PROC: 05HM33Z Insertion of Infusion Device into Right Internal Jugular Vein, Percutaneous Approach (ICD-10-PCS; 2023-11-08)
PROC: B543ZZA Ultrasonography of Right Jugular Veins, Guidance (ICD-10-PCS; 2023-11-08)
PROC: 5A1D70Z Performance of Urinary Filtration, Intermittent, Less than 6 Hours Per Day (ICD-10-PCS; 2023-11-08)
PROC: 0JH63XZ Insertion of Tunneled Vascular Access Device into Chest Subcutaneous Tissue and Fascia, Percutaneous Approach (ICD-10-PCS; 2023-11-14)
PROC: 02HV33Z Insertion of Infusion Device into Superior Vena Cava, Percutaneous Approach (ICD-10-PCS; 2023-11-14)
PROC: B518YZA Fluoroscopy of Superior Vena Cava using Other Contrast, Guidance (ICD-10-PCS; 2023-11-14)
DX: A41.9 Sepsis, unspecified organism (principal); E43 Unspecified severe protein-calorie malnutrition; G92.8 Other toxic encephalopathy; J96.01 Acute respiratory failure with hypoxia; K85.10 Biliary acute pancreatitis without necrosis or infection; R65.21 Severe sepsis with septic shock; J96.02 Acute respiratory failure with hypercapnia; N17.0 Acute kidney failure with tubular necrosis; K80.67 Calculus of gallbladder and bile duct with acute and chronic cholecystitis with obstruction; K56.7 Ileus, unspecified; E87.20 Acidosis, unspecified; J90 Pleural effusion, not elsewhere classified; D64.9 Anemia, unspecified; D69.6 Thrombocytopenia, unspecified; E11.22 Type 2 diabetes mellitus with diabetic chronic kidney disease; E66.9 Obesity, unspecified; E87.70 Fluid overload, unspecified; E88.09 Other disorders of plasma-protein metabolism, not elsewhere classified; I48.0 Paroxysmal atrial fibrillation; K21.9 Gastro-esophageal reflux disease without esophagitis; N18.9 Chronic kidney disease, unspecified; Z79.01 Long term (current) use of anticoagulants; M89.8X9 Other specified disorders of bone, unspecified site; Z90.49 Acquired absence of other specified parts of digestive tract; I12.9 Hypertensive chronic kidney disease with stage 1 through stage 4 chronic kidney disease, or unspecified chronic kidney disease
CPT/HCPCS: 36415; 36600; 71045-TC; 74018; 76770-TC; 80048-TC; 80053-TC; 80076-TC; 80202-TC; 81001; 82150-TC; 82550-TC; 82553; 82570-TC; 82803-TC; 82962-TC; 83690-TC; 83735-TC; 83970; 84100-TC; 84155; 84165; 84300-TC; 85025-TC; 86704; 86705; 86706; 86803; 86850-TC; 87040-TC; 87086-TC; 87340; 87806; 90935-TC; 92526; 92611-TC; 93307-TC; 94660; 94762-TC; 94799-TC; 97110-TC; 97112-TC; 97116-TC; 97530-TC; A4216; A4223; A9563; C1750; C1757; C1769; C1894; C2625; G0378; J0282; J0330; J1644; J1815; J1940; J2060; J2250; J2270; J2405; J2470; J2543; J2704; J3010; J3371; J3480; J3490; J7030; J7050; J7060; J7070; P9047; Q9967